=== PATIENT | female | born 2000 | race Caucasian/White ===

== ENCOUNTER 2023-02-26 19:03 | Emergency (ER) | payer OTHER, SELFPAY ==
[2023-02-26 19:25] VITALS: BP 142/100; PULSE 97; RESP 18; TEMP 36.1; O2SAT 99; BMI 39.2
--- NOTE | 2023-02-26 19:29 | ED.ABDPAIN ---
HPI - Abdominal Pain General Chief Complaint: Abdominal Pain Stated Complaint: headache, vomiting, not sleeping Time Seen by Provider: 02/26/23 22:13 Source: patient Mode of arrival: ambulatory Limitations: no limitations History of Present Illness HPI narrative: Patient with no significant past medical history been vomiting for last 3 days to 3 times a day able to drink fluids and solids no fever no chills no urinary symptoms no other family member sick no diarrhea Related Data Previous Rx's Medication Instructions Recorded doxycycline hyclate 100 mg tablet 100 mg PO BID #28 tabs 02/26/23 ondansetron 4 mg disintegrating 4 mg PO Q6-8H PRN nausea and 02/26/23 tablet vomiting #4 tabs Allergies Allergy/AdvReac Type Severity Reaction Status Date / Time No Known Allergies Allergy Verified 02/26/23 19:29 Review of Systems Review of Systems Yes all other systems are reviewed and are negative [facility] Social History Social History Advance Directives: No Advance Directives Information Provided: Yes Physical Exam ED Vital Signs: Vital Signs - 24 hr 02/26/23 19:25 02/26/23 22:12 Temperature 96.9 F 97.4 F Pulse Rate 97 98 Respiratory Rate 18 17 Blood Pressure 142/100 H 135/92 H Pulse Oximetry 99 98 Oxygen Delivery Method Room Air Room Air BMI result Body Mass Index 39.2 Appearance: Alert. Oriented X3. No acute distress. Obese Eyes: No pallor or icterus ENT: Pharynx normal. Oral Mucosa moist Neck: Normal inspection. Neck supple. CVS: Normal heart rate and rhythm. Pulses normal. Respiratory: No respiratory distress. Equal air entry bilateral, no wheezing/rales/rhonchi Abdomen: Soft and nontender. Bowel sounds are present, Skin: Skin warm and dry. Normal skin color. Normal skin turgor. Extremities: No lower extremity edema. No calf tenderness Neuro: Oriented X 3. No motor deficit. Course Course Course Narrative: RME: 22-year-old female with past medical history of asthma presenting to ED complaining of abdominal discomfort, nausea, and vomiting x3 days. Denies fever, chills, diarrhea, travel Labs, UA ordered Full HPI, ROS and PE to be performed by primary ED provider. Medical Decision Making Medical Decision Making MDM Narrative: Patient claims that the on 07/27 she had some rash and diagnosed her with early syphilis but she never got treatment will restart her on doxycycline as she is allergic to penicillin Lab Data MDM Lab Attestation statement: I reviewed the patient's lab results. 02/26/23 20:55 02/26/23 20:55 Labs: Lab Results 02/26/23 02/26/23 02/26/23 Range/Units 20:55 20:55 22:11 WBC 14.0 H (4.8-10.8) X10*3/uL RBC 6.17 H (4.20-5.50) X10*6/uL Hgb 17.9 H (12.0-16.0) g/dl Hct 52.6 H (37.0-47.0) % MCV 85.3 (80.0-98.0) fL MCH 29.0 (27.0-33.0) pg MCHC 34.0 (31.0-35.0) g/dl RDW 13.4 (11.0-16.0) % Plt Count 381 (160-400) X10*3/uL MPV 10.9 (9.4-12.3) fL Immature Gran % (Auto) 0.4 (0.0-0.4) % Neut % (Auto) 53.8 (45-73) % Lymph % (Auto) 34.3 (20-40) % [place] % (Auto) 10.0 (2-11) % Eos % (Auto) 0.9 (0-4) % Baso % (Auto) 0.6 (0-2) % Lymph # (Auto) 4.8 (1.2-4.9) X10*3/uL [place] # (Auto) 1.4 H (0.1-1.2) X10*3/uL Eos # (Auto) 0.1 (0.0-0.4) X10*3/uL Baso # (Auto) 0.1 (0.0-0.2) X10*3/uL Abs Immat Gran (auto) 0.05 H (0.00-0.03) X10*3/uL Absolute Neuts (auto) 7.6 (2.0-8.3) x10*3/uL Absolute Nucleated RBC 0.000 (0.0-0.012) X10*3/uL Nucleated RBC % (auto) 0.0 (0.0-0.2) /100WBC Sodium 141 (135-145) mmol/L Potassium 5.2 H (3.3-5.1) mmol/L Chloride 106 (96-108) mmol/L Carbon Dioxide 26 (22-29) mmol/L Anion Gap 14 (12-20) BUN 13 (9-16) mg/dL Creatinine 0.92 (0.5-1.4) mg/dL Estim Creat Clear Calc 126.7 Estimated GFR > 60 Random Glucose 89 (60-115) mg/dL Calcium 10.0 (8.4-10.2) mg/dL Magnesium 2.0 (1.6-2.6) mg/dL Total Bilirubin 0.5 (0.0-1.0) mg/dL Direct Bilirubin 0.1 (0.0-0.5) mg/dL AST 24 (5-31) U/L ALT 35 H (0-31) U/L Alkaline Phosphatase 86 (39-117) U/L Total Protein 7.8 (6.5-8.0) g/dL Albumin 4.5 (3.5-5.0) g/dL Lipase 15 (8-78) U/L Urine Color Yellow Urine Appearance Clear Urine pH 7.0 (5.0-9.0) Ur Specific [address] 1.025 (1.005-1.025) Urine Protein Trace (Neg-Trace) mg/dL Urine Glucose (UA) Negative (Negative) mg/dL Urine Ketones Trace (Negative) mg/dL Urine Blood Negative (Negative) Urine Nitrite Negative (Negative) Ur Leukocyte Esterase Negative (Negative) Urine Test (NEGATIVE) 02/26/23 Range/Units 22:11 WBC (4.8-10.8) X10*3/uL RBC (4.20-5.50) X10*6/uL Hgb (12.0-16.0) g/dl Hct (37.0-47.0) % MCV (80.0-98.0) fL MCH (27.0-33.0) pg MCHC (31.0-35.0) g/dl RDW (11.0-16.0) % Plt Count (160-400) X10*3/uL MPV (9.4-12.3) fL Immature Gran % (Auto) (0.0-0.4) % Neut % (Auto) (45-73) % Lymph % (Auto) (20-40) % [place] % (Auto) (2-11) % Eos % (Auto) (0-4) % Baso % (Auto) (0-2) % Lymph # (Auto) (1.2-4.9) X10*3/uL [place] # (Auto) (0.1-1.2) X10*3/uL Eos # (Auto) (0.0-0.4) X10*3/uL Baso # (Auto) (0.0-0.2) X10*3/uL Abs Immat Gran (auto) (0.00-0.03) X10*3/uL Absolute Neuts (auto) (2.0-8.3) x10*3/uL Absolute Nucleated RBC (0.0-0.012) X10*3/uL Nucleated RBC % (auto) (0.0-0.2) /100WBC Sodium (135-145) mmol/L Potassium (3.3-5.1) mmol/L Chloride (96-108) mmol/L Carbon Dioxide (22-29) mmol/L Anion Gap (12-20) BUN (9-16) mg/dL Creatinine (0.5-1.4) mg/dL Estim Creat Clear Calc Estimated GFR Random Glucose (60-115) mg/dL Calcium (8.4-10.2) mg/dL Magnesium (1.6-2.6) mg/dL Total Bilirubin (0.0-1.0) mg/dL Direct Bilirubin (0.0-0.5) mg/dL AST (5-31) U/L ALT (0-31) U/L Alkaline Phosphatase (39-117) U/L Total Protein (6.5-8.0) g/dL Albumin (3.5-5.0) g/dL Lipase (8-78) U/L Urine Color Urine Appearance Urine pH (5.0-9.0) Ur Specific [address] (1.005-1.025) Urine Protein (Neg-Trace) mg/dL Urine Glucose (UA) (Negative) mg/dL Urine Ketones (Negative) mg/dL Urine Blood (Negative) Urine Nitrite (Negative) Ur Leukocyte Esterase (Negative) Urine Test NEGATIVE (NEGATIVE) Medications Administered Discontinued Medications Generic Name Dose Route Start Last Admin Trade Name Freq PRN Reason Stop Dose Admin Ondansetron HCl 4 mg 02/26/23 22:29 02/26/23 22:38 Ondansetron Odt 4 Mg Tab.Rapdis TRANSLINGU 02/26/23 22:30 4 mg ONCE ONE Administration Discharge Plan Discharge Clinical Impression: Gastroenteritis Patient Disposition: Home, Self-Care Instructions: Acute Nausea and Vomiting (ED) Additional Instructions: Drink plenty of fluids Meds for nausea as prescribed Follow with PCP if not better Start taking doxycycline 1 capsule twice daily for 10 days Prescriptions: New ondansetron 4 mg tablet,disintegrating 4 mg PO Q6-8H PRN (Reason: nausea and vomiting) Qty: 4 0RF doxycycline hyclate 100 mg tablet 100 mg PO BID Qty: 28 0RF Interventions: ED Discharge Assessment Last Done: 02/26/23 22:49 Discharge Date/Time: 02/26/23 22:50
[2023-02-26 21:01] LABS: MANUAL DIFF FLAG NO
[2023-02-26 21:12] LABS: Basophils Absolute Auto 0.1 X10*3/uL (0.0-0.2); Basophils Percent Auto 0.6 % (0-2); Eosinophils Absolute Auto 0.1 X10*3/uL (0.0-0.4); Eosinophils Percent Auto 0.9 % (0-4); Hematocrit 52.6 % (37.0-47.0); Hemoglobin 17.9 g/dl (12.0-16.0); Imm Gran Abs Auto 0.05 X10*3/uL (0.00-0.03); Imm Gran Pct Auto 0.4 % (0.0-0.4); Lymphocytes Absolute Auto 4.8 X10*3/uL (1.2-4.9); Lymphocytes Percent Auto 34.3 % (20-40); Mean Corpuscular Volume 85.3 fL (80.0-98.0); Mean Platelet Volume 10.9 fL (9.4-12.3); Monocytes Absolute Auto 1.4 X10*3/uL (0.1-1.2); Neutrophils Absolute Auto 7.6 x10*3/uL (2.0-8.3); Neutrophils Percent Auto 53.8 % (45-73); Platelet Count 381 X10*3/uL (160-400); Red Blood Count 6.17 X10*6/uL (4.20-5.50); Red Cell Distribution Width 13.4 % (11.0-16.0)
[2023-02-26 21:18] LABS: Alanine Aminotransferase 35 U/L (0-31); Albumin Level 4.5 g/dL (3.5-5.0); Alkaline Phosphatase 86 U/L (39-117); Anion Gap 14 (12-20); Aspartate Amino Transferase 24 U/L (5-31); Bilirubin Direct 0.1 mg/dL (0.0-0.5); Bilirubin Total 0.5 mg/dL (0.0-1.0); Blood Urea Nitrogen 13 mg/dL (9-16); Carbon Dioxide 26 mmol/L (22-29); Chloride 106 mmol/L (96-108); Creatinine Clr Calc Pharmacy 126.7; Estimated Glomerular Filt Rate > 60; Glucose Random 89 mg/dL (60-115); Lipase 15 U/L (8-78); Potassium 5.2 mmol/L (3.3-5.1); Sodium 141 mmol/L (135-145); Total Protein 7.8 g/dL (6.5-8.0)
[2023-02-26 22:12] VITALS: BP 135/92; PULSE 98; RESP 17; TEMP 36.3; O2SAT 98
[2023-02-26 22:17] LABS: UPreg QC Valid YES; Urine Pregnancy NEGATIVE (NEGATIVE)
[2023-02-26 22:19] LABS: Appearance Urine Clear; Color Urine Yellow; Glucose Urine UA Negative (Negative); Leukocyte Esterase Urine Negative (Negative); Nitrite Urine Negative (Negative); Specific Gravity - Urine 1.025 (1.005-1.025); Urine Blood Negative (Negative); Urine Ketones Trace mg/dL (Negative); Urine Protein Trace mg/dL (Neg-Trace)
[2023-02-26] MEDS: Ondansetron ODT 4 MG TAB.RAPDIS TRANSLINGU (22:38)
== END 2023-02-26 22:50 | disposition home or self-care (01) ==
PROVIDERS: Physician Assistant; Emergency Provider Internal Medicine
DX: K52.9 Noninfective gastroenteritis and colitis, unspecified (principal); R11.2 Nausea with vomiting, unspecified
CPT/HCPCS: 36415; 80048; 80076; 81003; 81025; 83690; 83735; 85025; 99283

== ENCOUNTER 2023-03-29 11:27 | Emergency (ER) | payer OTHER, SELFPAY ==
--- NOTE | ~2023-03-29 | XR_ITS ---
EXAMINATION: XR FOREARM, RIGHT CLINICAL INFORMATION: Fall. Pain. COMPARISON: None available. TECHNIQUE: AP and lateral views of the right forearm were obtained. FINDINGS: The bones and soft tissues are normal. No fracture. Imaged portions of the elbow and wrist are unremarkable. XR/XR forearm RT 2V IMPRESSION: Unremarkable examination.
--- NOTE | ~2023-03-29 | XR_ITS ---
EXAMINATION: XR ELBOW, RIGHT CLINICAL INFORMATION: Injury COMPARISON: None available. TECHNIQUE: Two views of the right elbow. FINDINGS: Displacement of the fat pads of the elbow suggestive of joint effusion. No discrete fracture line is identified however this could be seen in the setting of a radiographically occult fracture, most commonly a radial head fracture. Soft tissues are unremarkable. XR/XR elbow RT 2V IMPRESSION: Displacement of the fat pads of the elbow suggestive of joint effusion. No discrete fracture line is identified however this could be seen in the setting of a radiographically occult fracture, most commonly a radial head fracture. Consider follow-up x-ray in 7-10 days.
[2023-03-29 11:30] VITALS: BP 151/96; PULSE 90; RESP 16; TEMP 36.9; O2SAT 97; BMI 39.9
--- NOTE | 2023-03-29 11:30 | ED_ITS ---
HPI - Extremity Injury (Upper) General Chief Complaint: Extremity Injury, Upper Stated Complaint: r arm inj Time Seen by Provider: 03/29/23 11:33 History of Present Illness HPI narrative: patient complains of right elbow pain after tripping and falling today and landing on her right elbow and now it hurts to move it she denies any other injury, no numbness no weakness no tingling no head injury no headache no neck pain no back pain Related Data Previous Rx's Medication Instructions Recorded doxycycline hyclate 100 mg tablet 100 mg PO BID #28 tabs 02/26/23 ondansetron 4 mg disintegrating 4 mg PO Q6-8H PRN nausea and 02/26/23 tablet vomiting #4 tabs Allergies Allergy/AdvReac Type Severity Reaction Status Date / Time Penicillins Allergy Unknown Verified 03/29/23 11:29 [facility] Past Medical History Source: nursing notes reviewed Social History Social History Advance Directives: No Advance Directives Information Provided: No Physical Exam Vital Signs: Vital Signs: Last Vital Signs Temp 98.5 F 03/29/23 11:30 Pulse 90 03/29/23 11:30 Resp 16 03/29/23 11:30 BP 151/96 H 03/29/23 11:30 Pulse Ox 97 03/29/23 11:30 O2 Del Method Room Air 03/29/23 11:30 BMI result Body Mass Index 39.9 general appearance the head is normocephalic atraumatic Neck is supple nontender Respiratory no distress Extremities the right elbow had posterior tenderness, there was no obvious deformity a was neurovascular intact distal, skin was intact, it is held in a flexed position and is very painful to extend it or rotate Other extremities normal Course Course Course Narrative: This is an RME: Additional HPI, ROS, PE not included below will be deferred to primary provider. Patient is a 22-year-old female presents to the emergency department for evaluation of right arm pain. Reports a mechanical fall last night landing on the forearm. Pain is localized to the proximal forearm intermittent tingling in the hand, pain is made worse with movement. Neurovascularly intact distally. X-ray of the forearm was read as negative, repeat x-ray of the elbow to get a lateral view I thought I saw a new effusion behind the joint, so patient is given a sling for possible radial head fracture I will call the patient with the radiology reading when it becomes available and patient is discharged treated for possible radial head fracture X-ray reading confirmed the presence of a posterior effusion and patient was called and a message was left advising her to follow up as advised in her discharge instructions for likely radial head fracture Discharge Plan Discharge Clinical Impression: Elbow fracture, right Patient Disposition: Home, Self-Care Additional Instructions: on one view on the x-ray I thought I saw fluid behind the elbow joint with sometimes indicates a crack in the radial head, but I am not certain I will have a reading from the radiologist later this afternoon and will call you with that reading If radiologist confirms that this is likely a radial head fracture usually takes 1-2 months to get better, so use the sling and most important follow with the orthopedist If he calls back and says that he read as normal then it is likely a bruise and should improve dramatically within just several days If it is not improving and your still having trouble bending and straightening it you will still need to follow with orthopedist as x-ray does not see all injuries Return any time any worse condition or concerns Apply ice, Tylenol and or Motrin as needed Prescriptions: No Action ondansetron 4 mg tablet,disintegrating 4 mg PO Q6-8H PRN (Reason: nausea and vomiting) Qty: 4 0RF doxycycline hyclate 100 mg tablet 100 mg PO BID Qty: 28 0RF Referrals: Jett Nicole MD [Physician] - ( right elbow injury) Stand Alone Forms: Work/School Release Interventions: ED Discharge Assessment Last Done: 03/29/23 13:35 Discharge Date/Time: 03/29/23 13:38
--- NOTE | 2023-03-29 13:26 | PC.NURSE ---
Sling appled to right arm tolerated well.
== END 2023-03-29 13:38 | disposition home or self-care (01) ==
PROVIDERS: Emergency Provider Emergency Medicine
DX: S42.401A Unspecified fracture of lower end of right humerus, initial encounter for closed fracture (principal); W01.0XXA Fall on same level from slipping, tripping and stumbling without subsequent striking against object, initial encounter; Y93.9 Activity, unspecified; Y92.9 Unspecified place or not applicable; Y99.9 Unspecified external cause status
CPT/HCPCS: 73070; 73090; 99282; 99283